=== PATIENT | female | born 1995 | race Hispanic/Latino ===

== ENCOUNTER → 2017-03-21 | Outpatient (CLI) | payer OTHER ==
[~2017-03-21] VITALS: Ht 165.1 cm; Wt 110.0 kg
[~2017-03-21] MED LIST: PRENATAL TABLE1 EAC3 PO
[2017-03-21 13:02] VITALS: BP 120/69
== END | disposition home or self-care (01) ==
LOC: IVINF 12:57
DX: Z31.82 Encounter for Rh incompatibility status (principal); Z3A.33 33 weeks gestation of pregnancy; Z67.41 Type O blood, Rh negative
CPT/HCPCS: 96372; J2790

== ENCOUNTER 2017-05-08 07:23 | Inpatient (IN) | payer OTHER ==
[2017-05-08] VITALS (21 sets, daily range): BP systolic 112–150; BP diastolic 54–85
[~2017-05-08] VITALS: Ht 165.1 cm; Wt 113.4 kg
[2017-05-08 09:09] LABS: EOSINOPHIL COUNT 0.1 K/uL (0-0.3); HEMATOCRIT 30.2 % (36.0-46.0); IMMATURE GRANULOCYTE (%) 1.3 % (0.0-0.7); IMMATURE GRANULOCYTE COUNT 0.2 K/uL; INSTRUMENT ABS NEUTROPHIL CT 8.1 K/uL; LYMPHOCYTE COUNT 2.8 K/uL (1.0-2.8); MCHC 31.1 G/DL (30.0-36.0); MCV 80.3 FL (83-99); MEAN PLAT.VOLUME 10.3 uM^3 (9.5-12.4); MONOCYTE (%) 5.6 % (3-12); MONOCYTE COUNT 0.7 K/uL (0-0.8); NEUTROPHIL (%) 67.9 % (45-76); NEUTROPHIL COUNT 8.1 K/uL (1.8-6.4); PLATELET COUNT 378 K/uL (156-360); RBC DIS.WIDTH-CV 16.2 % (11.8-14.6); RED BLOOD COUNT 3.76 M/uL (3.80-5.20); WHITE BLOOD COUNT 11.9 K/uL (4.1-10.2)
[2017-05-08] MEDS ORDERED: ENDOCET 5-3251 EACH PO (19:57)
[2017-05-08] MEDS ORDERED: IBUPROFEN800 MG PO (19:57)
[2017-05-09 07:53] VITALS: BP 108/60
[2017-05-09 07:54] LABS: BASOPHIL COUNT 0.1 K/uL (0-0.1); EOSINOPHIL (%) 0.9 % (0-5); EOSINOPHIL COUNT 0.2 K/uL (0-0.3); HEMATOCRIT 25.1 % (36.0-46.0); IMMATURE GRANULOCYTE (%) 0.8 % (0.0-0.7); IMMATURE GRANULOCYTE COUNT 0.1 K/uL; INSTRUMENT ABS NEUTROPHIL CT 10.6 K/uL; LYMPHOCYTE COUNT 4.2 K/uL (1.0-2.8); MCH 25.4 PG (29.0-34.0); MCHC 31.9 G/DL (30.0-36.0); MCV 79.7 FL (83-99); MEAN PLAT.VOLUME 10.7 uM^3 (9.5-12.4); MONOCYTE (%) 6.4 % (3-12); NEUTROPHIL (%) 65.4 % (45-76); NEUTROPHIL COUNT 10.6 K/uL (1.8-6.4); NRBC (%) 0.1 /100 WBC (0-0); PLATELET COUNT 312 K/uL (156-360); RBC DIS.WIDTH-CV 16.5 % (11.8-14.6); RBC DIS.WIDTH-SD 46.5 % (39-53); RED BLOOD COUNT 3.15 M/uL (3.80-5.20); WHITE BLOOD COUNT 16.2 K/uL (4.1-10.2)
[2017-05-09] MEDS ORDERED: SLOW RELEASE I160 MG PO (09:24)
[2017-05-09 15:59] VITALS: BP 138/73
[2017-05-09 23:00] VITALS: BP 126/61
[2017-05-10 08:07] VITALS: BP 142/72
== END 2017-05-10 14:15 | disposition home or self-care (01) | DRG 775 ==
LOC: LDRP-OP 07:23 → 2WEST 07:24
PROVIDERS: Advanced Practice Midwife; Obstetrics & Gynecology
DX: O48.0 Post-term pregnancy (principal); Z68.41 Body mass index [BMI] 40.0-44.9, adult; O36.4XX2 Maternal care for intrauterine death, fetus 2; O36.0931 Maternal care for other rhesus isoimmunization, third trimester, fetus 1; Z37.3 Twins, one liveborn and one stillborn; O30.003 Twin pregnancy, unspecified number of placenta and unspecified number of amniotic sacs, third trimester; Z3A.40 40 weeks gestation of pregnancy; E66.9 Obesity, unspecified; O99.214 Obesity complicating childbirth; O99.824 Streptococcus B carrier state complicating childbirth; O70.1 Second degree perineal laceration during delivery; O63.1 Prolonged second stage (of labor); O69.81X0 Labor and delivery complicated by cord around neck, without compression, not applicable or unspecified; D50.9 Iron deficiency anemia, unspecified
CPT/HCPCS: 83030; 85025; 86870; 86900; 86901; 86905; C1755; J2540; J2790; J3010; J7120